=== PATIENT | female | born 2000 | race Caucasian/White ===

== ENCOUNTER → 2020-02-22 10:55 | Outpatient (CLI) | payer BC, SELFPAY ==
--- NOTE | ~2020-02-22 | MR_ITS ---
EXAMINATION: MR brain/brain stem wo con EXAM DATE: 02/22/2020 11:31 INDICATION: Generalized headaches, dizziness, blurred vision. TECHNIQUE: Magnetic resonance imaging (MRI) of the brain/brain stem obtained without contrast. Rosemaryitt al T1, axial diffusion, gradient echo (T2*), T1, T2, FLAIR sequences obtained. There is no prior st udy for comparison. FINDINGS: There are no areas of restricted diffusion to suggest acute infarction. There is no acute hemorrhage seen on the T2*, a hemosiderin sensitive sequence. No intraparenchymal brain mass. The ve ntricles are normal in size. There are no extra-axial collections. Flow voids are seen in the cereb ral arteries on the T2-weighted sequences consistent with their expected patency. The orbits are unr emarkable. Soft tissue is unremarkable. IMPRESSION: 1. Normal brain MRI examination. Reviewed, dictated and finalized at location A.
== END ==
PROVIDERS: PCP Family Medicine; Visit Provider Family Medicine
DX: R42 Dizziness and giddiness (principal); R51 Headache
CPT/HCPCS: 70551

== ENCOUNTER 2020-04-19 17:54 | Outpatient (CLI) | payer BC, SELFPAY | END 2020-04-19 17:55 | disposition home or self-care (01) | LOC: ANHLAB 17:56 | PROVIDERS: PCP Family Medicine; Visit Provider Family Medicine | DX: A23.9 Brucellosis, unspecified (principal) | CPT/HCPCS: 36415; 86622 ==

== ENCOUNTER 2022-02-27 10:47 | Outpatient (CLI) | payer OTHER, SELFPAY ==
--- NOTE | 2022-02-28 12:31 | WPDNEUROLOGY ---
Neurology EEG Report General Information Date of Study: 02/27/22 TEST eeg DIAGNOSIS stupor CONDITION OF RECORDING awake drowsy and sleep EEG NUMBER [id number] CLINICAL HISTORY patient reports she had a couple of episodes of vomiting becoming very rigid and shaky can last up to 10 to 15 minutes denies any loss of consciousness EEG DESCRIPTION whole record consists of low medium voltage 9 to 11 hertz per 2nd alpha admixed with low-voltage 15 to 18 hertz per 2nd beta. Low-voltage activity seen admixed with waxing and waning alpha rhythm posteriorly during drowsiness. Bilateral symmetrical sleep activity seen during sleep. Hyperventilation not done. Photic stimulation produced normal drive. Non paroxysmal. Nonfocal. Nonlateralizing. IMPRESSION Normal record
== END 2022-02-27 10:48 | disposition home or self-care (01) ==
LOC: ANHNEURO 10:49
PROVIDERS: PCP Family Medicine; Visit Provider Family Medicine
DX: R40.1 Stupor (principal)
CPT/HCPCS: 95816